=== PATIENT | male | born 1995 | race Caucasian/White ===

== ENCOUNTER 2017-06-14 10:44 | Inpatient (IN) | payer BC ==
[~2017-06-14] VITALS: Ht 182.9 cm; Wt 81.3 kg
[2017-06-14] MEDS ORDERED: PREVACID 15MG15 M1 PO (11:06)
[2017-06-14] MEDS ORDERED: ADVIL200 MG PO (11:06)
[2017-06-14 11:54] LABS: ADJUSTED CALCIUM 8.8 mg/dL (8.4-10.2); BILIRUBIN,TOTAL 0.9 mg/dL (0.0-1.0); CALCIUM 9.6 mg/dL (8.4-10.2); CREATININE, serum 0.81 mg/dL (0.66-1.25); POTASSIUM 4.1 mmol/L (3.4-5.0)
[2017-06-14 12:00] LABS: BASO % 0.2 % (0.0-2.0); EOS # 0.1 (0.0-0.7); EOS % 1.1 % (0-4.0); GRAN # 6.5 (1.4-6.5); GRAN % 66.3 % (42.2-75.2); HEMATOCRIT 40.9 % (42.0-52.0); HEMOGLOBIN 13.7 g/dl (13.5-18.0); LYMPH # 2.6 (1.2-3.4); LYMPH % 26.3 % (20.0-51.0); MEAN CELL VOLUME 90 fl (80.0-100.0); MEAN CORPUSCULAR HEMOGLOBIN 30 pg (27.0-31.0); MEAN CORPUSCULAR HGB CONC 34 g/dl (33.0-37.0); MEAN PLATELET VOLUME 10.9 fl (7.4-10.4); MONO # 0.6 (0.1-0.6); MONO % 5.9 % (1.7-9.3); PLATELET COUNT 236 K/mm3 (130-400); RED BLOOD COUNT 4.56 M/mm3 (4.20-5.60); WHITE BLOOD COUNT 9.8 K/mm3 (4.8-10.8)
[2017-06-14 16:00] VITALS: BP 153/97; PULSE 54; TEMP 98.9
[2017-06-14 20:09] VITALS: BP 137/74; PULSE 57; TEMP 97.4
[2017-06-14 22:02] LABS: MUCOUS Present /lpf; PH 7 (5-8); SQUAMOUS EPITHELIAL None Seen /hpf; URINE APPEARANCE Clear; URINE BACTERIA None Seen /hpf; URINE BILIRUBIN Negative (NEGATIVE); URINE BLOOD Negative (NEGATIVE); URINE COLOR Straw; URINE GLUCOSE Negative (NEGATIVE); URINE KETONE Trace (NEGATIVE); URINE LEUKOCYTE ESTERASE Negative (NEGATIVE); URINE PROTEIN(semi-quant) Negative (NEGATIVE); URINE RBC 0-2 /hpf; URINE UROBILINOGEN Negative (NEGATIVE); URINE WBC 0-2 /hpf
[2017-06-14 22:33] LABS: COLLECTION METHOD CLEAN CATCH
[2017-06-15] VITALS (7 sets, daily range): BP systolic 130–150; BP diastolic 5–84; PULSE 53–91; TEMP 97.7–98.8
[2017-06-15 07:43] LABS: CALCIUM 9.2 mg/dL (8.4-10.2); CREATININE, serum 0.75 mg/dL (0.66-1.25); MAGNESIUM 1.6 mg/dL (1.6-2.3); PHOSPHOROUS 3.9 mg/dL (2.5-4.5); POTASSIUM 4.2 mmol/L (3.4-5.0)
[2017-06-16 04:55] VITALS: BP 133/60; PULSE 64; TEMP 98.2
[2017-06-16 07:39] LABS: BASO % 0.2 % (0.0-2.0); EOS % 0.5 % (0-4.0); GRAN # 5.6 (1.4-6.5); GRAN % 64.2 % (42.2-75.2); HEMOGLOBIN 12.2 g/dl (13.5-18.0); LYMPH # 2.3 (1.2-3.4); LYMPH % 26.2 % (20.0-51.0); MEAN CELL VOLUME 91 fl (80.0-100.0); MEAN CORPUSCULAR HEMOGLOBIN 30 pg (27.0-31.0); MEAN CORPUSCULAR HGB CONC 33 g/dl (33.0-37.0); MEAN PLATELET VOLUME 10.9 fl (7.4-10.4); MONO # 0.8 (0.1-0.6); MONO % 8.7 % (1.7-9.3); PLATELET COUNT 176 K/mm3 (130-400); RED BLOOD COUNT 4.03 M/mm3 (4.20-5.60); WHITE BLOOD COUNT 8.7 K/mm3 (4.8-10.8)
[2017-06-16 07:44] LABS: CALCIUM 8.5 mg/dL (8.4-10.2); CREATININE, serum 0.72 mg/dL (0.66-1.25); MAGNESIUM 1.8 mg/dL (1.6-2.3); PHOSPHOROUS 2.7 mg/dL (2.5-4.5); POTASSIUM 3.6 mmol/L (3.4-5.0)
[2017-06-16 07:45] LABS: HEMATOCRIT 36.8 % (42.0-52.0)
[2017-06-16 08:42] VITALS: BP 125/66; PULSE 79; TEMP 98
[2017-06-16 12:08] VITALS: BP 118/65; PULSE 60; TEMP 98.1
[2017-06-16 16:22] VITALS: BP 128/76; PULSE 74; TEMP 98
[2017-06-16 19:37] VITALS: BP 132/61; PULSE 74; TEMP 98.3
[2017-06-17 00:05] VITALS: BP 137/81; PULSE 64; TEMP 98.5
[2017-06-17 04:12] VITALS: BP 123/60; PULSE 64; TEMP 98.6
[2017-06-17 07:20] LABS: BASO % 0.3 % (0.0-2.0); EOS # 0.1 (0.0-0.7); EOS % 1.7 % (0-4.0); GRAN # 3.1 (1.4-6.5); GRAN % 48.4 % (42.2-75.2); LYMPH # 2.6 (1.2-3.4); LYMPH % 40.1 % (20.0-51.0); MEAN CELL VOLUME 91 fl (80.0-100.0); MEAN CORPUSCULAR HGB CONC 33 g/dl (33.0-37.0); MEAN PLATELET VOLUME 10.9 fl (7.4-10.4); MONO # 0.6 (0.1-0.6); MONO % 9.3 % (1.7-9.3); PLATELET COUNT 180 K/mm3 (130-400); RED BLOOD COUNT 3.82 M/mm3 (4.20-5.60); WHITE BLOOD COUNT 6.4 K/mm3 (4.8-10.8)
[2017-06-17 07:24] LABS: HEMATOCRIT 34.8 % (42.0-52.0); HEMOGLOBIN 11.5 g/dl (13.5-18.0); MEAN CORPUSCULAR HEMOGLOBIN 30 pg (27.0-31.0)
[2017-06-17 07:30] LABS: CALCIUM 8.9 mg/dL (8.4-10.2); CREATININE, serum 0.68 mg/dL (0.66-1.25); MAGNESIUM 1.9 mg/dL (1.6-2.3); PHOSPHOROUS 3.3 mg/dL (2.5-4.5); POTASSIUM 3.7 mmol/L (3.4-5.0)
[2017-06-17 07:34] VITALS: BP 115/63; PULSE 56; TEMP 97.6
[2017-06-17 11:25] VITALS: BP 126/72; PULSE 66; TEMP 98.5
== END 2017-06-17 17:37 | disposition home or self-care (01) | DRG 439 ==
LOC: COL.ER 10:44 → MEDICAL 14:16
PROVIDERS: Emergency Medicine; Internal Medicine
DX: K85.00 Idiopathic acute pancreatitis without necrosis or infection (principal); E87.2 Acidosis; K86.1 Other chronic pancreatitis; R03.0 Elevated blood-pressure reading, without diagnosis of hypertension
CPT/HCPCS: 99222-AI; 99231-AI; 99232-AI; 99238; C9113; J1170; J1644; J2405; J2550; J2765; J3010; J3475; J3480; J7030; Q9967

== ENCOUNTER 2017-08-06 22:23 | Observation (INO) | payer BC ==
[~2017-08-06] VITALS: Ht 182.9 cm; Wt 75.7 kg
[~2017-08-06 22:23] MED LIST: ADVIL200 MG PO; PREVACID 15MG15 M1 PO
[2017-08-06 22:54] LABS: BASO % 0.4 % (0.0-2.0); EOS # 0.4 (0.0-0.7); EOS % 3.7 % (0-4.0); GRAN # 5.1 (1.4-6.5); GRAN % 51.8 % (42.2-75.2); HEMOGLOBIN 13.7 g/dl (13.5-18.0); LYMPH # 3.5 (1.2-3.4); MEAN CELL VOLUME 91 fl (80.0-100.0); MEAN CORPUSCULAR HEMOGLOBIN 30 pg (27.0-31.0); MEAN CORPUSCULAR HGB CONC 33 g/dl (33.0-37.0); MEAN PLATELET VOLUME 10.8 fl (7.4-10.4); MONO # 0.9 (0.1-0.6); MONO % 8.9 % (1.7-9.3); PLATELET COUNT 216 K/mm3 (130-400); RED BLOOD COUNT 4.61 M/mm3 (4.20-5.60); WHITE BLOOD COUNT 9.9 K/mm3 (4.8-10.8)
[2017-08-06 23:04] LABS: ALANINE AMINOTRANSFERASE 39 U/L (21-72); ALBUMIN 4.9 gm/dL (3.5-5.0); ALKALINE PHOSPHATASE 68 U/L (50-136); AMYLASE 238 U/L (30-110); ANION GAP 13 mmol/L (7-16); BILIRUBIN,TOTAL 0.9 mg/dL (0.0-1.0); BLOOD UREA NITROGEN 12 mg/dL (9-20); CALCIUM 9.7 mg/dL (8.4-10.2); CARBON DIOXIDE 23 mmol/L (22-30); CHLORIDE 104 mmol/L (98-107); CREATININE, serum 0.98 mg/dL (0.66-1.25); GLUCOSE 107 mg/dL (74-106); POTASSIUM 3.8 mmol/L (3.4-5.0); SODIUM 141 mmol/L (137-145)
[2017-08-06 23:06] LABS: ALCOHOL(ethanol),MEDICAL < 10 mg/dL
[2017-08-06 23:11] LABS: LIPASE 2110 U/L (23-300)
[2017-08-07] VITALS (7 sets, daily range): BP systolic 117–134; BP diastolic 54–88; PULSE 55–98; TEMP 97.4–98.7
[2017-08-07] MEDS ORDERED: LEXAPRO 10MG10 MG PO (01:10)
[2017-08-07] MEDS ORDERED: ATARAX 25MG25 MG/TAB PO (01:12)
[2017-08-07] MEDS ORDERED: DESYREL 100MG100 MG PO (01:12)
[2017-08-07 06:51] LABS: BASO % 0.3 % (0.0-2.0); EOS # 0.1 (0.0-0.7); EOS % 1.3 % (0-4.0); GRAN # 6.8 (1.4-6.5); GRAN % 73.6 % (42.2-75.2); HEMATOCRIT 39.2 % (42.0-52.0); HEMOGLOBIN 12.7 g/dl (13.5-18.0); LYMPH # 1.8 (1.2-3.4); LYMPH % 19.4 % (20.0-51.0); MEAN CELL VOLUME 92 fl (80.0-100.0); MEAN CORPUSCULAR HEMOGLOBIN 30 pg (27.0-31.0); MEAN CORPUSCULAR HGB CONC 32 g/dl (33.0-37.0); MEAN PLATELET VOLUME 11.3 fl (7.4-10.4); MONO # 0.5 (0.1-0.6); MONO % 5.1 % (1.7-9.3); PLATELET COUNT 204 K/mm3 (130-400); RED BLOOD COUNT 4.25 M/mm3 (4.20-5.60); WHITE BLOOD COUNT 9.3 K/mm3 (4.8-10.8)
[2017-08-07 07:03] LABS: CALCIUM 9.1 mg/dL (8.4-10.2); CREATININE, serum 0.81 mg/dL (0.66-1.25)
[2017-08-08 03:43] VITALS: BP 114/63; PULSE 59; TEMP 97.6
[2017-08-08 07:11] LABS: BASO % 0.3 % (0.0-2.0); EOS # 0.2 (0.0-0.7); EOS % 3.3 % (0-4.0); GRAN # 3.1 (1.4-6.5); GRAN % 49.2 % (42.2-75.2); LYMPH # 2.5 (1.2-3.4); LYMPH % 39.4 % (20.0-51.0); MEAN CELL VOLUME 92 fl (80.0-100.0); MEAN CORPUSCULAR HGB CONC 32 g/dl (33.0-37.0); MONO # 0.5 (0.1-0.6); MONO % 7.6 % (1.7-9.3); PLATELET COUNT 169 K/mm3 (130-400); RED BLOOD COUNT 3.84 M/mm3 (4.20-5.60); WHITE BLOOD COUNT 6.3 K/mm3 (4.8-10.8)
[2017-08-08 07:12] LABS: HEMATOCRIT 35.2 % (42.0-52.0); HEMOGLOBIN 11.4 g/dl (13.5-18.0); MEAN CORPUSCULAR HEMOGLOBIN 30 pg (27.0-31.0)
[2017-08-08 07:14] LABS: CALCIUM 8.7 mg/dL (8.4-10.2); CHOLESTEROL RISK RATIO 2.2; CREATININE, serum 0.74 mg/dL (0.66-1.25); POTASSIUM 3.7 mmol/L (3.4-5.0)
[2017-08-08 08:30] VITALS: BP 109/69; PULSE 51; TEMP 98.3
[2017-08-08 11:51] VITALS: BP 118/71; PULSE 54; TEMP 97.4
[2017-08-08] MEDS ORDERED: NORCO 325 MG-101 TAB PO (15:36)
[2017-08-08] MEDS ORDERED: ZOFRAN ODT4 MG PO (15:36)
== END 2017-08-08 16:53 | disposition home or self-care (01) ==
LOC: COL.ER 22:23 → MEDICAL 23:31
PROVIDERS: Nurse Practitioner; Physician Assistant
DX: K86.1 Other chronic pancreatitis (principal); F43.10 Post-traumatic stress disorder, unspecified; Z90.49 Acquired absence of other specified parts of digestive tract
CPT/HCPCS: 99223-AI; G0378; J1170; J2405; J2550; J7030

== ENCOUNTER 2017-12-23 06:16 | Observation (INO) | payer BC ==
[~2017-12-23] VITALS: Ht 182.9 cm; Wt 78.6 kg
[~2017-12-23 06:16] MED LIST changes: +ATARAX 25MG25 MG/TAB PO; +DESYREL 100MG100 MG PO; +LEXAPRO 10MG10 MG PO; +NORCO 325 MG-101 TAB PO; +ULTRAM 50MG TAB50 MG PO; +ZOFRAN 4MG T4 MG/TAB PO; +ZOFRAN ODT4 MG PO
[2017-12-23 06:40] LABS: BASO % 0.4 % (0.0-2.0); EOS # 0.2 (0.0-0.7); EOS % 2.8 % (0-4.0); GRAN # 2.5 (1.4-6.5); GRAN % 31.3 % (42.2-75.2); HEMATOCRIT 39.5 % (42.0-52.0); LYMPH # 4.7 (1.2-3.4); LYMPH % 58.9 % (20.0-51.0); MEAN CELL VOLUME 90 fl (80.0-100.0); MEAN CORPUSCULAR HEMOGLOBIN 30 pg (27.0-31.0); MEAN CORPUSCULAR HGB CONC 33 g/dl (33.0-37.0); MEAN PLATELET VOLUME 10.7 fl (7.4-10.4); MONO # 0.5 (0.1-0.6); MONO % 6.5 % (1.7-9.3); PLATELET COUNT 241 K/mm3 (130-400); RED BLOOD COUNT 4.38 M/mm3 (4.20-5.60); REDCELL DISTRIBUTION WIDTH-CV 13.1 % (11.5-14.5)
[2017-12-23 06:52] LABS: ALANINE AMINOTRANSFERASE 24 U/L (21-72); ALBUMIN 4.7 gm/dL (3.5-5.0); ALKALINE PHOSPHATASE 64 U/L (50-136); ANION GAP 15 mmol/L (7-16); AST,SGOT 16 U/L (15-37); BILIRUBIN,TOTAL 0.6 mg/dL (0.0-1.0); BLOOD UREA NITROGEN 18 mg/dL (9-20); CALCIUM 9.8 mg/dL (8.4-10.2); CARBON DIOXIDE 25 mmol/L (22-30); CHLORIDE 105 mmol/L (98-107); CREATININE, serum 0.97 mg/dL (0.66-1.25); GLUCOSE 101 mg/dL (74-106); LIPASE 1562 U/L (23-300); POTASSIUM 3.9 mmol/L (3.4-5.0); SODIUM 145 mmol/L (137-145); TOTAL PROTEIN 8.5 gm/dL (6.4-8.2)
[2017-12-23 06:54] LABS: C-REACTIVE PROTEIN < 0.5 mg/dL (0.0-0.9)
[2017-12-23 10:59] VITALS: BP 130/79; PULSE 45; TEMP 97.2
[2017-12-23 15:42] VITALS: BP 136/92; PULSE 76; TEMP 98
[2017-12-23 19:53] VITALS: BP 125/68; PULSE 57; TEMP 98.7
[2017-12-23 23:38] VITALS: BP 117/60; PULSE 55; TEMP 98.6
[2017-12-24 02:29] VITALS: BP 112/56; PULSE 53; TEMP 98.3
[2017-12-24 06:32] LABS: ALBUMIN 3.3 gm/dL (3.5-5.0); CALCIUM 8.6 mg/dL (8.4-10.2); CREATININE, serum 0.69 mg/dL (0.66-1.25); MAGNESIUM 1.7 mg/dL (1.6-2.3); POTASSIUM 3.8 mmol/L (3.4-5.0); TOTAL PROTEIN 6.1 gm/dL (6.4-8.2)
[2017-12-24 07:20] VITALS: BP 100/59; PULSE 94; TEMP 97.5
[2017-12-24] MEDS ORDERED: PERCOCET 325 MG1 TA2 PO (09:54)
== END 2017-12-24 14:30 | disposition home or self-care (01) ==
LOC: COL.ER 06:16 → MEDICAL 08:40
PROVIDERS: Emergency Medicine; Internal Medicine
DX: K86.1 Other chronic pancreatitis (principal); F43.10 Post-traumatic stress disorder, unspecified
CPT/HCPCS: 99238; G0378; J1170; J2405; J2550; J7030

== ENCOUNTER 2017-12-24 20:14 | Inpatient (IN) | payer BC ==
[~2017-12-24] VITALS: Ht 182.9 cm; Wt 79.9 kg
[~2017-12-24 20:14] MED LIST changes: +PERCOCET 325 MG1 TA2 PO
[2017-12-24 20:48] LABS: BASO % 0.2 % (0.0-2.0); EOS # 0.1 (0.0-0.7); EOS % 0.9 % (0-4.0); GRAN % 76.6 % (42.2-75.2); HEMATOCRIT 37.3 % (42.0-52.0); HEMOGLOBIN 12.7 g/dl (13.5-18.0); LYMPH # 1.9 (1.2-3.4); LYMPH % 16.3 % (20.0-51.0); MEAN CELL VOLUME 88 fl (80.0-100.0); MEAN CORPUSCULAR HEMOGLOBIN 30 pg (27.0-31.0); MEAN CORPUSCULAR HGB CONC 34 g/dl (33.0-37.0); MEAN PLATELET VOLUME 10.5 fl (7.4-10.4); MONO # 0.7 (0.1-0.6); MONO % 5.7 % (1.7-9.3); PLATELET COUNT 209 K/mm3 (130-400); RED BLOOD COUNT 4.24 M/mm3 (4.20-5.60); REDCELL DISTRIBUTION WIDTH-CV 13.2 % (11.5-14.5)
[2017-12-24 21:02] LABS: ALBUMIN 4.2 gm/dL (3.5-5.0); BILIRUBIN,TOTAL 1.3 mg/dL (0.0-1.0); C-REACTIVE PROTEIN 1.3 mg/dL (0.0-0.9); CALCIUM 9.4 mg/dL (8.4-10.2); CREATININE, serum 0.72 mg/dL (0.66-1.25); TOTAL PROTEIN 7.5 gm/dL (6.4-8.2)
[2017-12-24 21:16] LABS: POTASSIUM 3.8 mmol/L (3.4-5.0)
[2017-12-24 23:01] VITALS: BP 147/77; PULSE 62; TEMP 98.1
[2017-12-25 04:28] VITALS: BP 105/51; PULSE 51; TEMP 98.5
[2017-12-25 06:22] LABS: BASO % 0.1 % (0.0-2.0); EOS # 0.1 (0.0-0.7); EOS % 1.4 % (0-4.0); GRAN # 4.9 (1.4-6.5); GRAN % 66.6 % (42.2-75.2); HEMOGLOBIN 11.2 g/dl (13.5-18.0); LYMPH # 1.9 (1.2-3.4); LYMPH % 25.6 % (20.0-51.0); MEAN CELL VOLUME 91 fl (80.0-100.0); MEAN CORPUSCULAR HEMOGLOBIN 30 pg (27.0-31.0); MEAN CORPUSCULAR HGB CONC 33 g/dl (33.0-37.0); MEAN PLATELET VOLUME 11.1 fl (7.4-10.4); MONO # 0.4 (0.1-0.6); PLATELET COUNT 200 K/mm3 (130-400); RED BLOOD COUNT 3.74 M/mm3 (4.20-5.60)
[2017-12-25 06:24] LABS: HEMATOCRIT 34.2 % (42.0-52.0)
[2017-12-25 06:40] LABS: CALCIUM 8.5 mg/dL (8.4-10.2); CREATININE, serum 0.7 mg/dL (0.66-1.25); POTASSIUM 3.7 mmol/L (3.4-5.0)
[2017-12-25 08:22] VITALS: BP 98/54; PULSE 52; TEMP 98.4
[2017-12-25 11:46] VITALS: BP 116/62; PULSE 64; TEMP 98.4
[2017-12-25 15:51] VITALS: BP 123/68; PULSE 68; TEMP 98.3
[2017-12-25 19:29] VITALS: BP 122/67; PULSE 55; TEMP 98.3
[2017-12-26 03:28] VITALS: BP 118/63; PULSE 58; TEMP 97.7
[2017-12-26 06:18] LABS: BASO % 0.3 % (0.0-2.0); EOS # 0.2 (0.0-0.7); EOS % 2.7 % (0-4.0); GRAN # 3.5 (1.4-6.5); GRAN % 52.3 % (42.2-75.2); HEMOGLOBIN 10.1 g/dl (13.5-18.0); LYMPH # 2.5 (1.2-3.4); LYMPH % 37.1 % (20.0-51.0); MEAN CELL VOLUME 90 fl (80.0-100.0); MEAN CORPUSCULAR HEMOGLOBIN 30 pg (27.0-31.0); MEAN CORPUSCULAR HGB CONC 33 g/dl (33.0-37.0); MEAN PLATELET VOLUME 11.2 fl (7.4-10.4); MONO # 0.5 (0.1-0.6); MONO % 7.4 % (1.7-9.3); PLATELET COUNT 159 K/mm3 (130-400); RED BLOOD COUNT 3.41 M/mm3 (4.20-5.60); REDCELL DISTRIBUTION WIDTH-CV 12.7 % (11.5-14.5)
[2017-12-26 06:20] LABS: HEMATOCRIT 30.7 % (42.0-52.0)
[2017-12-26 06:31] LABS: CALCIUM 8.3 mg/dL (8.4-10.2); CREATININE, serum 0.67 mg/dL (0.66-1.25); POTASSIUM 3.8 mmol/L (3.4-5.0)
[2017-12-26 07:51] VITALS: BP 115/56; PULSE 63; TEMP 97.7
[2017-12-26 11:37] VITALS: BP 122/70; PULSE 65; TEMP 98.8
[2017-12-26 15:31] VITALS: BP 123/73; PULSE 51; TEMP 98.5
== END 2017-12-26 16:35 | disposition home or self-care (01) | DRG 440 ==
LOC: COL.ER 20:14 → SURG 22:03
PROVIDERS: Family Medicine; Nurse Practitioner Family; Physician Assistant
DX: K85.90 Acute pancreatitis without necrosis or infection, unspecified (principal); K86.1 Other chronic pancreatitis; E16.2 Hypoglycemia, unspecified; F43.10 Post-traumatic stress disorder, unspecified
CPT/HCPCS: 99223-AI; 99238; C9113; J1170; J1650; J2405; J2550; J7030

== ENCOUNTER 2018-05-01 12:11 | Emergency (ER) | payer BC ==
[~2018-05-01] VITALS: Ht 182.9 cm; Wt 77.3 kg
[~2018-05-01 12:11] MED LIST changes: +NORCO 325 MG-51 TAB PO
[2018-05-01 12:18] VITALS: BP 133/82; TEMP 98.7
[2018-05-01 12:54] LABS: BASO % 0.3 % (0.0-2.0); EOS # 0.1 (0.0-0.7); EOS % 1.9 % (0-4.0); GRAN # 3.6 (1.4-6.5); HEMOGLOBIN 12.4 g/dl (13.5-18.0); LYMPH # 1.6 (1.2-3.4); LYMPH % 28.6 % (20.0-51.0); MEAN CELL VOLUME 89 fl (80.0-100.0); MEAN CORPUSCULAR HEMOGLOBIN 30 pg (27.0-31.0); MEAN CORPUSCULAR HGB CONC 34 g/dl (33.0-37.0); MEAN PLATELET VOLUME 10.6 fl (7.4-10.4); MONO # 0.4 (0.1-0.6); PLATELET COUNT 226 K/mm3 (130-400); RED BLOOD COUNT 4.17 M/mm3 (4.20-5.60); REDCELL DISTRIBUTION WIDTH-CV 13.2 % (11.5-14.5)
[2018-05-01 13:10] LABS: ALBUMIN 4.5 gm/dL (3.5-5.0); BILIRUBIN,TOTAL 0.8 mg/dL (0.0-1.0); CALCIUM 9.2 mg/dL (8.4-10.2); CREATININE, serum 0.8 mg/dL (0.66-1.25); POTASSIUM 4.3 mmol/L (3.4-5.0); TOTAL PROTEIN 7.4 gm/dL (6.4-8.2)
[2018-05-01] MEDS ORDERED: PHENERGAN 25 TA25 MG PO (15:09)
[2018-05-01] MEDS ORDERED: NORCO 325 MG-51 TAB PO (15:09)
[2018-05-01 16:28] VITALS: PULSE 58
== END 2018-05-01 16:28 | disposition home or self-care (01) ==
LOC: COL.ER 12:11
PROVIDERS: Emergency Medicine
DX: K85.90 Acute pancreatitis without necrosis or infection, unspecified (principal)
CPT/HCPCS: J1170; J1630; J2550; J7030; J7040

== ENCOUNTER 2018-05-02 05:32 | Inpatient (IN) | payer BC ==
[~2018-05-02] VITALS: Ht 182.9 cm; Wt 83.5 kg
[~2018-05-02 05:32] MED LIST changes: +PHENERGAN 25 TA25 MG PO
[2018-05-02 06:04] LABS: BASO % 0.3 % (0.0-2.0); EOS # 0.1 (0.0-0.7); EOS % 1.7 % (0-4.0); GRAN # 5.1 (1.4-6.5); GRAN % 71.7 % (42.2-75.2); LYMPH # 1.4 (1.2-3.4); LYMPH % 20.2 % (20.0-51.0); MEAN CELL VOLUME 90 fl (80.0-100.0); MEAN CORPUSCULAR HEMOGLOBIN 30 pg (27.0-31.0); MEAN CORPUSCULAR HGB CONC 33 g/dl (33.0-37.0); MEAN PLATELET VOLUME 10.1 fl (7.4-10.4); MONO # 0.4 (0.1-0.6); PLATELET COUNT 165 K/mm3 (130-400); RED BLOOD COUNT 3.71 M/mm3 (4.20-5.60); REDCELL DISTRIBUTION WIDTH-CV 13.1 % (11.5-14.5)
[2018-05-02 06:10] LABS: HEMATOCRIT 33.5 % (42.0-52.0)
[2018-05-02 06:18] LABS: ALBUMIN 3.6 gm/dL (3.5-5.0); BILIRUBIN,TOTAL 0.9 mg/dL (0.0-1.0); CALCIUM 8.2 mg/dL (8.4-10.2); CREATININE, serum 0.8 mg/dL (0.66-1.25); POTASSIUM 3.7 mmol/L (3.4-5.0); TOTAL PROTEIN 6.3 gm/dL (6.4-8.2)
[2018-05-02 12:28] VITALS: BP 109/57; PULSE 55; TEMP 97.9
[2018-05-02 16:44] VITALS: BP 114/65; PULSE 70; TEMP 98.2
[2018-05-02 19:56] VITALS: BP 121/65; PULSE 66; TEMP 98.1
[2018-05-02 23:44] VITALS: BP 158/94; PULSE 99; TEMP 98.2
[2018-05-03 03:59] VITALS: BP 113/61; PULSE 70; TEMP 98.5
[2018-05-03 07:38] VITALS: BP 118/68; PULSE 61; TEMP 98.2
[2018-05-03 11:06] VITALS: BP 105/59; PULSE 58; TEMP 97.9
[2018-05-03 16:29] VITALS: BP 122/67; PULSE 64
[2018-05-03 19:40] VITALS: BP 120/65; PULSE 59; TEMP 98.3
[2018-05-04 00:28] LABS: COLLECTION METHOD CLEAN CATCH
[2018-05-04 00:36] LABS: MUCOUS Present /lpf; PH 5 (5-8); SQUAMOUS EPITHELIAL None Seen /hpf; URINE APPEARANCE Clear; URINE BACTERIA None Seen /hpf; URINE BILIRUBIN Negative (NEGATIVE); URINE BLOOD Negative (NEGATIVE); URINE COLOR Straw; URINE GLUCOSE Negative (NEGATIVE); URINE KETONE 2+ (NEGATIVE); URINE LEUKOCYTE ESTERASE Negative (NEGATIVE); URINE NITRATE Negative (NEGATIVE); URINE PROTEIN(semi-quant) Negative (NEGATIVE); URINE RBC 0-2 /hpf; URINE UROBILINOGEN Negative (NEGATIVE)
[2018-05-04 04:35] VITALS: BP 148/80; PULSE 72; TEMP 98.2
[2018-05-04 06:02] LABS: BASO % 0.1 % (0.0-2.0); EOS # 0.1 (0.0-0.7); EOS % 0.6 % (0-4.0); GRAN # 6.6 (1.4-6.5); GRAN % 77.4 % (42.2-75.2); HEMOGLOBIN 11.7 g/dl (13.5-18.0); LYMPH # 1.2 (1.2-3.4); LYMPH % 14.5 % (20.0-51.0); MEAN CELL VOLUME 89 fl (80.0-100.0); MEAN CORPUSCULAR HEMOGLOBIN 30 pg (27.0-31.0); MEAN CORPUSCULAR HGB CONC 34 g/dl (33.0-37.0); MEAN PLATELET VOLUME 10.5 fl (7.4-10.4); MONO # 0.6 (0.1-0.6); MONO % 6.6 % (1.7-9.3); PLATELET COUNT 215 K/mm3 (130-400); RED BLOOD COUNT 3.88 M/mm3 (4.20-5.60); REDCELL DISTRIBUTION WIDTH-CV 12.7 % (11.5-14.5)
[2018-05-04 06:03] LABS: HEMATOCRIT 34.7 % (42.0-52.0)
[2018-05-04 06:11] LABS: CALCIUM 8.6 mg/dL (8.4-10.2); CREATININE, serum 0.67 mg/dL (0.66-1.25); POTASSIUM 3.7 mmol/L (3.4-5.0)
[2018-05-04 07:03] VITALS: BP 115/58; PULSE 74; TEMP 98.6
[2018-05-04 11:27] VITALS: BP 112/61; PULSE 60; TEMP 80; TEMP 98.2
[2018-05-04 15:18] VITALS: BP 127/82; PULSE 101; TEMP 98.7
[2018-05-04 21:28] VITALS: BP 124/68; PULSE 66; TEMP 99
[2018-05-05 01:33] VITALS: BP 123/73; PULSE 57; TEMP 98.5
[2018-05-05 04:54] VITALS: BP 105/59; PULSE 58; TEMP 97.9
[2018-05-05 06:58] LABS: CALCIUM 8.4 mg/dL (8.4-10.2); CREATININE, serum 0.69 mg/dL (0.66-1.25); MAGNESIUM 1.9 mg/dL (1.6-2.3); POTASSIUM 3.9 mmol/L (3.4-5.0)
[2018-05-05 07:28] VITALS: BP 99/47; PULSE 56; TEMP 98
[2018-05-05 11:32] VITALS: BP 104/59; PULSE 67; TEMP 98.9
[2018-05-05 15:14] VITALS: BP 117/51; PULSE 73; TEMP 98.1
[2018-05-05 20:27] VITALS: BP 122/61; PULSE 58; TEMP 98.5
[2018-05-06 00:05] VITALS: BP 123/73; PULSE 70; TEMP 98.4
[2018-05-06 06:41] LABS: HEMOGLOBIN 11.4 g/dl (13.5-18.0); MEAN CELL VOLUME 86 fl (80.0-100.0); MEAN CORPUSCULAR HEMOGLOBIN 30 pg (27.0-31.0); MEAN CORPUSCULAR HGB CONC 35 g/dl (33.0-37.0); PLATELET COUNT 210 K/mm3 (130-400); RED BLOOD COUNT 3.85 M/mm3 (4.20-5.60); REDCELL DISTRIBUTION WIDTH-CV 12.8 % (11.5-14.5)
[2018-05-06 06:46] LABS: HEMATOCRIT 32.9 % (42.0-52.0)
[2018-05-06 06:52] LABS: CALCIUM 8.8 mg/dL (8.4-10.2); CREATININE, serum 0.7 mg/dL (0.66-1.25); POTASSIUM 3.5 mmol/L (3.4-5.0)
[2018-05-06 08:10] VITALS: BP 97/57; PULSE 61; TEMP 98.4
[2018-05-06 08:43] LABS: BAND 1 % (0-10); EOSINOPHIL 3 % (0-4); NEUTROPHILS 40 % (42.0-75.2)
[2018-05-06 08:44] LABS: LYMPHOCYTE 49 % (20.0-51.0); PLATELET ESTIMATE NORMAL (NORMAL)
[2018-05-06 11:38] VITALS: BP 133/80; PULSE 72; TEMP 98.9
[2018-05-06] MEDS ORDERED: CIPRO 500MG TA500 MG PO (12:38)
[2018-05-06] MEDS ORDERED: FLAGYL500 MG PO (12:38)
== END 2018-05-06 14:12 | disposition home or self-care (01) | DRG 440 ==
LOC: COL.ER 05:32 → MEDICAL 07:30
PROVIDERS: Emergency Medicine; Internal Medicine; Physician Assistant
DX: K85.00 Idiopathic acute pancreatitis without necrosis or infection (principal); K86.1 Other chronic pancreatitis; K21.9 Gastro-esophageal reflux disease without esophagitis; F43.10 Post-traumatic stress disorder, unspecified; K52.9 Noninfective gastroenteritis and colitis, unspecified; E16.2 Hypoglycemia, unspecified
CPT/HCPCS: 99222-AI; 99232-AI; 99233-AI; 99239; J0744; J1170; J1650; J2405; J2550; J7030; J7040; Q9967

== ENCOUNTER 2018-05-11 16:47 | Inpatient (IN) | payer BC ==
[~2018-05-11] VITALS: Ht 182.9 cm; Wt 78.1 kg
[~2018-05-11 16:47] MED LIST changes: +CIPRO 500MG TA500 MG PO; +FLAGYL500 MG PO
[2018-05-11 17:13] LABS: BASO % 0.3 % (0.0-2.0); EOS # 0.1 (0.0-0.7); EOS % 1.2 % (0-4.0); GRAN # 5.5 (1.4-6.5); GRAN % 61.3 % (42.2-75.2); LYMPH # 2.9 (1.2-3.4); LYMPH % 32.1 % (20.0-51.0); MEAN CELL VOLUME 89 fl (80.0-100.0); MEAN CORPUSCULAR HEMOGLOBIN 29 pg (27.0-31.0); MEAN CORPUSCULAR HGB CONC 33 g/dl (33.0-37.0); MEAN PLATELET VOLUME 10.6 fl (7.4-10.4); MONO # 0.5 (0.1-0.6); PLATELET COUNT 256 K/mm3 (130-400); RED BLOOD COUNT 4.09 M/mm3 (4.20-5.60)
[2018-05-11 17:14] LABS: HEMATOCRIT 36.3 % (42.0-52.0)
[2018-05-11 17:24] LABS: ALANINE AMINOTRANSFERASE 39 U/L (21-72); ALBUMIN 4.3 gm/dL (3.5-5.0); ALKALINE PHOSPHATASE 71 U/L (50-136); AMYLASE 996 U/L (30-110); ANION GAP 15 mmol/L (7-16); AST,SGOT 27 U/L (15-37); BILIRUBIN,TOTAL 1.3 mg/dL (0.0-1.0); BLOOD UREA NITROGEN 9 mg/dL (9-20); CARBON DIOXIDE 21 mmol/L (22-30); CHLORIDE 103 mmol/L (98-107); CREATININE, serum 0.69 mg/dL (0.66-1.25); GLUCOSE 86 mg/dL (74-106); POTASSIUM 3.3 mmol/L (3.4-5.0); SODIUM 139 mmol/L (137-145); TOTAL PROTEIN 7.4 gm/dL (6.4-8.2)
[2018-05-11 17:27] LABS: C-REACTIVE PROTEIN < 0.5 mg/dL (0.0-0.9)
[2018-05-11 17:50] LABS: LIPASE 10508 U/L (23-300)
[2018-05-11 18:57] LABS: INR 1.2 (0.8-3.0); PROTHROMBIN TIME 13.5 SECONDS (9.7-12.8)
[2018-05-11 20:06] VITALS: BP 123/73; PULSE 110; TEMP 98.1
[2018-05-12] VITALS (7 sets, daily range): BP systolic 108–122; BP diastolic 51–68; PULSE 47–72; TEMP 97.6–98.4
[2018-05-12 06:19] LABS: BASO % 0.2 % (0.0-2.0); EOS # 0.1 (0.0-0.7); GRAN # 2.6 (1.4-6.5); GRAN % 43.2 % (42.2-75.2); HEMOGLOBIN 10.3 g/dl (13.5-18.0); LYMPH # 2.8 (1.2-3.4); LYMPH % 47.4 % (20.0-51.0); MEAN CELL VOLUME 92 fl (80.0-100.0); MEAN CORPUSCULAR HEMOGLOBIN 30 pg (27.0-31.0); MEAN CORPUSCULAR HGB CONC 33 g/dl (33.0-37.0); MEAN PLATELET VOLUME 11.2 fl (7.4-10.4); MONO # 0.4 (0.1-0.6); MONO % 6.9 % (1.7-9.3); PLATELET COUNT 204 K/mm3 (130-400); RED BLOOD COUNT 3.43 M/mm3 (4.20-5.60); REDCELL DISTRIBUTION WIDTH-CV 13.2 % (11.5-14.5)
[2018-05-12 06:20] LABS: HEMATOCRIT 31.4 % (42.0-52.0)
[2018-05-12 06:29] LABS: ALBUMIN 3.4 gm/dL (3.5-5.0); BILIRUBIN,TOTAL 0.9 mg/dL (0.0-1.0); CALCIUM 8.4 mg/dL (8.4-10.2); CREATININE, serum 0.64 mg/dL (0.66-1.25); MAGNESIUM 1.9 mg/dL (1.6-2.3); POTASSIUM 4.1 mmol/L (3.4-5.0)
[2018-05-12 08:37] LABS: COLLECTION METHOD CLEAN CATCH
[2018-05-12 08:50] LABS: MUCOUS Present /lpf; PH 6 (5-8); SQUAMOUS EPITHELIAL None Seen /hpf; URINE APPEARANCE Clear; URINE BACTERIA None Seen /hpf; URINE BILIRUBIN Negative (NEGATIVE); URINE BLOOD Negative (NEGATIVE); URINE COLOR Yellow; URINE GLUCOSE Negative (NEGATIVE); URINE KETONE 1+ (NEGATIVE); URINE LEUKOCYTE ESTERASE Negative (NEGATIVE); URINE NITRATE Negative (NEGATIVE); URINE PROTEIN(semi-quant) Negative (NEGATIVE); URINE RBC 0-2 /hpf; URINE UROBILINOGEN Negative (NEGATIVE)
[2018-05-13 05:25] VITALS: BP 115/64; PULSE 59; TEMP 99
[2018-05-13 07:50] VITALS: BP 109/67; PULSE 74; TEMP 98.2
[2018-05-13 08:18] LABS: BASO % 0.3 % (0.0-2.0); EOS # 0.1 (0.0-0.7); EOS % 1.5 % (0-4.0); GRAN # 3.9 (1.4-6.5); GRAN % 59.7 % (42.2-75.2); HEMOGLOBIN 11.7 g/dl (13.5-18.0); LYMPH # 2.1 (1.2-3.4); LYMPH % 31.8 % (20.0-51.0); MEAN CELL VOLUME 91 fl (80.0-100.0); MEAN CORPUSCULAR HEMOGLOBIN 30 pg (27.0-31.0); MEAN CORPUSCULAR HGB CONC 33 g/dl (33.0-37.0); MEAN PLATELET VOLUME 10.9 fl (7.4-10.4); MONO # 0.4 (0.1-0.6); MONO % 6.2 % (1.7-9.3); PLATELET COUNT 256 K/mm3 (130-400); RED BLOOD COUNT 3.95 M/mm3 (4.20-5.60); REDCELL DISTRIBUTION WIDTH-CV 12.8 % (11.5-14.5)
[2018-05-13 08:48] LABS: ALBUMIN 4.2 gm/dL (3.5-5.0); CALCIUM 8.8 mg/dL (8.4-10.2); CREATININE, serum 0.7 mg/dL (0.66-1.25); MAGNESIUM 1.9 mg/dL (1.6-2.3); PHOSPHOROUS 3.3 mg/dL (2.5-4.5); POTASSIUM 4.4 mmol/L (3.4-5.0)
[2018-05-13 12:14] VITALS: BP 113/57; PULSE 66; TEMP 98
[2018-05-13 16:33] VITALS: BP 116/62; PULSE 60; TEMP 98
[2018-05-13 19:42] VITALS: BP 115/56; PULSE 63; TEMP 97.9
[2018-05-14] VITALS (7 sets, daily range): BP systolic 90–128; BP diastolic 32–74; PULSE 56–73; TEMP 97.8–98.5
[2018-05-14 06:24] LABS: BASO % 0.3 % (0.0-2.0); EOS # 0.1 (0.0-0.7); EOS % 1.6 % (0-4.0); GRAN # 3.6 (1.4-6.5); GRAN % 58.1 % (42.2-75.2); HEMATOCRIT 35.6 % (42.0-52.0); HEMOGLOBIN 11.6 g/dl (13.5-18.0); LYMPH % 33.1 % (20.0-51.0); MEAN CELL VOLUME 91 fl (80.0-100.0); MEAN CORPUSCULAR HEMOGLOBIN 30 pg (27.0-31.0); MEAN CORPUSCULAR HGB CONC 33 g/dl (33.0-37.0); MEAN PLATELET VOLUME 11.2 fl (7.4-10.4); MONO # 0.4 (0.1-0.6); MONO % 6.7 % (1.7-9.3); PLATELET COUNT 259 K/mm3 (130-400); REDCELL DISTRIBUTION WIDTH-CV 12.9 % (11.5-14.5)
[2018-05-14 06:40] LABS: CALCIUM 8.8 mg/dL (8.4-10.2); CREATININE, serum 0.71 mg/dL (0.66-1.25); POTASSIUM 4.2 mmol/L (3.4-5.0)
[2018-05-15 00:47] VITALS: BP 124/74; PULSE 75; TEMP 98.1
[2018-05-15 04:56] VITALS: BP 106/60; PULSE 75; TEMP 98.2
[2018-05-15 08:38] VITALS: BP 99/53; PULSE 69; TEMP 97.7
[2018-05-15 11:29] VITALS: BP 119/70; PULSE 72; TEMP 98.2
[2018-05-15 15:32] VITALS: BP 110/65; PULSE 84; TEMP 99.1
[2018-05-15 20:04] VITALS: BP 115/60; PULSE 82; TEMP 98
[2018-05-16 00:40] VITALS: BP 125/73; PULSE 83; TEMP 99
[2018-05-16 03:45] VITALS: BP 115/50; PULSE 92; TEMP 98.8
[2018-05-16 06:18] LABS: BASO % 0.3 % (0.0-2.0); EOS % 0.5 % (0-4.0); GRAN # 4.6 (1.4-6.5); GRAN % 61.1 % (42.2-75.2); HEMOGLOBIN 10.8 g/dl (13.5-18.0); LYMPH # 1.9 (1.2-3.4); LYMPH % 25.3 % (20.0-51.0); MEAN CELL VOLUME 88 fl (80.0-100.0); MEAN CORPUSCULAR HEMOGLOBIN 30 pg (27.0-31.0); MEAN CORPUSCULAR HGB CONC 34 g/dl (33.0-37.0); MEAN PLATELET VOLUME 11.3 fl (7.4-10.4); MONO % 12.7 % (1.7-9.3); PLATELET COUNT 192 K/mm3 (130-400); RED BLOOD COUNT 3.64 M/mm3 (4.20-5.60); REDCELL DISTRIBUTION WIDTH-CV 13.1 % (11.5-14.5)
[2018-05-16 06:33] LABS: CALCIUM 8.5 mg/dL (8.4-10.2); CREATININE, serum 0.57 mg/dL (0.66-1.25); POTASSIUM 3.1 mmol/L (3.4-5.0)
[2018-05-16 08:39] VITALS: BP 122/72; PULSE 76; TEMP 98.8
[2018-05-16 12:24] VITALS: BP 107/59; PULSE 77; TEMP 98.1
[2018-05-16 14:30] VITALS: BP 119/72; PULSE 76; TEMP 98.1
[2018-05-16 19:56] VITALS: BP 118/65; PULSE 97; TEMP 98
[2018-05-17 00:09] VITALS: BP 117/68; PULSE 91; TEMP 98.2
[2018-05-17 03:53] VITALS: BP 91/54; PULSE 71; TEMP 98.3
[2018-05-17 09:31] VITALS: BP 95/55; PULSE 71; TEMP 98.4
[2018-05-17 11:48] LABS: BASO % 0.2 % (0.0-2.0); EOS # 0.1 (0.0-0.7); EOS % 1.8 % (0-4.0); GRAN # 2.5 (1.4-6.5); GRAN % 50.1 % (42.2-75.2); HEMOGLOBIN 11.2 g/dl (13.5-18.0); LYMPH # 1.8 (1.2-3.4); LYMPH % 36.4 % (20.0-51.0); MEAN CELL VOLUME 90 fl (80.0-100.0); MEAN CORPUSCULAR HEMOGLOBIN 30 pg (27.0-31.0); MEAN CORPUSCULAR HGB CONC 33 g/dl (33.0-37.0); MEAN PLATELET VOLUME 12.1 fl (7.4-10.4); MONO # 0.6 (0.1-0.6); MONO % 11.3 % (1.7-9.3); PLATELET COUNT 215 K/mm3 (130-400); RED BLOOD COUNT 3.73 M/mm3 (4.20-5.60); REDCELL DISTRIBUTION WIDTH-CV 13.4 % (11.5-14.5)
[2018-05-17 11:49] LABS: HEMATOCRIT 33.7 % (42.0-52.0)
[2018-05-17 11:58] LABS: ALANINE AMINOTRANSFERASE 27 U/L (21-72); ALBUMIN 3.7 gm/dL (3.5-5.0); ALKALINE PHOSPHATASE 62 U/L (50-136); ANION GAP 7 mmol/L (7-16); AST,SGOT 13 U/L (15-37); BILIRUBIN,TOTAL 0.9 mg/dL (0.0-1.0); CARBON DIOXIDE 32 mmol/L (22-30); CHLORIDE 100 mmol/L (98-107); CREATININE, serum 0.61 mg/dL (0.66-1.25); GLUCOSE 115 mg/dL (74-106); MAGNESIUM 1.9 mg/dL (1.6-2.3); POTASSIUM 3.3 mmol/L (3.4-5.0); SODIUM 139 mmol/L (137-145); TOTAL PROTEIN 6.9 gm/dL (6.4-8.2)
[2018-05-17 11:59] LABS: BLOOD UREA NITROGEN < 2 mg/dL (9-20)
[2018-05-17 12:25] VITALS: BP 98/58; PULSE 71; TEMP 98.4
[2018-05-17 16:52] VITALS: BP 98/60; PULSE 72; TEMP 98.5
[2018-05-17 20:10] VITALS: BP 118/71; PULSE 70; TEMP 98.2
[2018-05-18 00:32] VITALS: BP 105/65; PULSE 82; TEMP 98.5
[2018-05-18 04:06] VITALS: BP 105/66; PULSE 75; TEMP 98.5
[2018-05-18 07:05] VITALS: BP 113/69; PULSE 69; TEMP 98.7
[2018-05-18 07:22] LABS: BASO % 0.2 % (0.0-2.0); EOS # 0.1 (0.0-0.7); EOS % 2.7 % (0-4.0); GRAN % 43.9 % (42.2-75.2); LYMPH # 1.9 (1.2-3.4); LYMPH % 43.2 % (20.0-51.0); MEAN CELL VOLUME 90 fl (80.0-100.0); MEAN CORPUSCULAR HGB CONC 33 g/dl (33.0-37.0); MEAN PLATELET VOLUME 11.8 fl (7.4-10.4); MONO # 0.4 (0.1-0.6); MONO % 9.8 % (1.7-9.3); PLATELET COUNT 225 K/mm3 (130-400); RED BLOOD COUNT 3.36 M/mm3 (4.20-5.60); REDCELL DISTRIBUTION WIDTH-CV 13.5 % (11.5-14.5)
[2018-05-18 07:31] LABS: ALANINE AMINOTRANSFERASE 26 U/L (21-72); ALBUMIN 3.4 gm/dL (3.5-5.0); ALKALINE PHOSPHATASE 52 U/L (50-136); ANION GAP 7 mmol/L (7-16); AST,SGOT 13 U/L (15-37); BILIRUBIN,TOTAL 0.5 mg/dL (0.0-1.0); CALCIUM 8.7 mg/dL (8.4-10.2); CARBON DIOXIDE 31 mmol/L (22-30); CHLORIDE 101 mmol/L (98-107); CREATININE, serum 0.56 mg/dL (0.66-1.25); GLUCOSE 125 mg/dL (74-106); MAGNESIUM 1.8 mg/dL (1.6-2.3); POTASSIUM 3.5 mmol/L (3.4-5.0); SODIUM 139 mmol/L (137-145); TOTAL PROTEIN 6.3 gm/dL (6.4-8.2)
[2018-05-18 07:32] LABS: BLOOD UREA NITROGEN < 2 mg/dL (9-20); HEMATOCRIT 30.1 % (42.0-52.0); HEMOGLOBIN 9.9 g/dl (13.5-18.0); MEAN CORPUSCULAR HEMOGLOBIN 29 pg (27.0-31.0)
[2018-05-18 20:00] VITALS: BP 114/67; PULSE 85; TEMP 98.5
[2018-05-19 04:00] VITALS: BP 130/84; PULSE 77; TEMP 98.4
[2018-05-19 06:27] LABS: ALBUMIN 3.8 gm/dL (3.5-5.0); BILIRUBIN,TOTAL 0.4 mg/dL (0.0-1.0); CALCIUM 9.1 mg/dL (8.4-10.2); CREATININE, serum 0.58 mg/dL (0.66-1.25); MAGNESIUM 2.1 mg/dL (1.6-2.3); PHOSPHOROUS 4.4 mg/dL (2.5-4.5); POTASSIUM 3.8 mmol/L (3.4-5.0)
[2018-05-19 06:34] LABS: PRE ALBUMIN 11.3 mg/dL (17.6-36.0)
[2018-05-19 08:00] VITALS: BP 113/72; PULSE 71; TEMP 97.6
[2018-05-19 12:00] VITALS: BP 113/67; PULSE 79; TEMP 98.5
[2018-05-19 16:00] VITALS: BP 116/74; PULSE 70; TEMP 98.4
[2018-05-19 19:58] VITALS: BP 124/72; PULSE 80; TEMP 98
[2018-05-19 23:38] VITALS: BP 112/62; PULSE 75; TEMP 98
[2018-05-20 03:55] VITALS: BP 123/79; PULSE 70; TEMP 98.8
[2018-05-20 06:23] LABS: BASO % 0.4 % (0.0-2.0); EOS # 0.1 (0.0-0.7); EOS % 2.7 % (0-4.0); GRAN # 2.2 (1.4-6.5); GRAN % 42.8 % (42.2-75.2); HEMOGLOBIN 11.4 g/dl (13.5-18.0); LYMPH # 2.4 (1.2-3.4); LYMPH % 45.6 % (20.0-51.0); MEAN CELL VOLUME 90 fl (80.0-100.0); MEAN CORPUSCULAR HEMOGLOBIN 29 pg (27.0-31.0); MEAN CORPUSCULAR HGB CONC 33 g/dl (33.0-37.0); MEAN PLATELET VOLUME 11.7 fl (7.4-10.4); MONO # 0.4 (0.1-0.6); MONO % 8.3 % (1.7-9.3); PLATELET COUNT 278 K/mm3 (130-400); RED BLOOD COUNT 3.89 M/mm3 (4.20-5.60); REDCELL DISTRIBUTION WIDTH-CV 13.4 % (11.5-14.5)
[2018-05-20 06:46] LABS: BILIRUBIN,TOTAL 0.5 mg/dL (0.0-1.0); CALCIUM 9.4 mg/dL (8.4-10.2); CREATININE, serum 0.62 mg/dL (0.66-1.25); POTASSIUM 4.2 mmol/L (3.4-5.0); TOTAL PROTEIN 7.2 gm/dL (6.4-8.2)
[2018-05-20 07:52] VITALS: BP 107/69; PULSE 86
[2018-05-20] MEDS ORDERED: FLAGYL500 MG PO (08:13)
[2018-05-20] MEDS ORDERED: CIPRO 500MG TA500 MG PO (08:13)
[2018-05-20] MEDS ORDERED: NORCO 325 MG-51 TAB PO (08:14)
[2018-05-20 11:59] VITALS: BP 120/72; PULSE 79; TEMP 97.6
== END 2018-05-20 14:18 | disposition home or self-care (01) | DRG 439 ==
LOC: COL.ER 16:47 → SURG 18:07
PROVIDERS: Emergency Medicine; Family Medicine; Internal Medicine; Nurse Practitioner Family; Physician Assistant
PROC: 0DH67UZ Insertion of Feeding Device into Stomach, Via Natural or Artificial Opening (ICD-10-PCS; principal; 2018-05-16)
DX: K85.00 Idiopathic acute pancreatitis without necrosis or infection (principal); E46 Unspecified protein-calorie malnutrition; K86.1 Other chronic pancreatitis; K52.9 Noninfective gastroenteritis and colitis, unspecified; F43.12 Post-traumatic stress disorder, chronic; E87.6 Hypokalemia; K21.9 Gastro-esophageal reflux disease without esophagitis; K76.0 Fatty (change of) liver, not elsewhere classified; E16.2 Hypoglycemia, unspecified
CPT/HCPCS: OP; 99231-AI; 99232-AI; 99239; C9113; J1170; J1644; J1885; J2405; J2550; J3475; J3480; J7030; J7121; Q9967

== ENCOUNTER 2018-05-27 15:36 | Inpatient (IN) | payer BC ==
[~2018-05-27] VITALS: Ht 182.9 cm; Wt 75.2 kg
[2018-05-27 17:00] LABS: BASO % 0.5 % (0.0-2.0); EOS # 0.2 (0.0-0.7); GRAN % 49.8 % (42.2-75.2); HEMATOCRIT 37.6 % (42.0-52.0); HEMOGLOBIN 12.4 g/dl (13.5-18.0); LYMPH # 3.1 (1.2-3.4); LYMPH % 38.5 % (20.0-51.0); MEAN CELL VOLUME 89 fl (80.0-100.0); MEAN CORPUSCULAR HEMOGLOBIN 30 pg (27.0-31.0); MEAN CORPUSCULAR HGB CONC 33 g/dl (33.0-37.0); MEAN PLATELET VOLUME 10.7 fl (7.4-10.4); MONO # 0.7 (0.1-0.6); MONO % 8.9 % (1.7-9.3); PLATELET COUNT 326 K/mm3 (130-400); RED BLOOD COUNT 4.21 M/mm3 (4.20-5.60); REDCELL DISTRIBUTION WIDTH-CV 13.5 % (11.5-14.5)
[2018-05-27 17:11] LABS: ALBUMIN 4.7 gm/dL (3.5-5.0); BILIRUBIN,TOTAL 0.9 mg/dL (0.0-1.0); C-REACTIVE PROTEIN 0.6 mg/dL (0.0-0.9); CALCIUM 9.6 mg/dL (8.4-10.2); CREATININE, serum 0.73 mg/dL (0.66-1.25); POTASSIUM 4.2 mmol/L (3.4-5.0); TOTAL PROTEIN 8.1 gm/dL (6.4-8.2)
[2018-05-27 20:36] VITALS: BP 130/84; PULSE 66; TEMP 98.5
[2018-05-27 23:01] VITALS: BP 128/91; PULSE 104; TEMP 97.5
[2018-05-28 03:56] VITALS: BP 113/65; PULSE 50; TEMP 97.4
[2018-05-28 06:41] LABS: BASO % 0.4 % (0.0-2.0); EOS # 0.2 (0.0-0.7); EOS % 2.4 % (0-4.0); GRAN # 2.9 (1.4-6.5); HEMOGLOBIN 10.9 g/dl (13.5-18.0); LYMPH % 52.2 % (20.0-51.0); MEAN CORPUSCULAR HEMOGLOBIN 30 pg (27.0-31.0); MEAN CORPUSCULAR HGB CONC 32 g/dl (33.0-37.0); MEAN PLATELET VOLUME 11.1 fl (7.4-10.4); MONO # 0.5 (0.1-0.6); MONO % 6.7 % (1.7-9.3); PLATELET COUNT 262 K/mm3 (130-400); RED BLOOD COUNT 3.66 M/mm3 (4.20-5.60); REDCELL DISTRIBUTION WIDTH-CV 13.4 % (11.5-14.5)
[2018-05-28 06:53] LABS: CALCIUM 8.7 mg/dL (8.4-10.2); CREATININE, serum 0.74 mg/dL (0.66-1.25); HEMATOCRIT 34.5 % (42.0-52.0); MEAN CELL VOLUME 94 fl (80.0-100.0)
[2018-05-28 07:14] VITALS: BP 108/60; PULSE 55; TEMP 97.6
[2018-05-28 11:35] VITALS: BP 107/61; PULSE 55; TEMP 98.1
[2018-05-28 15:34] VITALS: BP 112/71; PULSE 56; TEMP 98.2
[2018-05-28 21:18] VITALS: BP 106/54; PULSE 55; TEMP 97.9
[2018-05-29 00:39] VITALS: BP 114/67; PULSE 101; TEMP 97.9
[2018-05-29 04:10] VITALS: BP 105/56; PULSE 57; TEMP 97.6
[2018-05-29 06:19] LABS: ALBUMIN 3.6 gm/dL (3.5-5.0); BILIRUBIN,TOTAL 0.8 mg/dL (0.0-1.0); CALCIUM 8.6 mg/dL (8.4-10.2); CREATININE, serum 0.79 mg/dL (0.66-1.25); POTASSIUM 3.9 mmol/L (3.4-5.0); TOTAL PROTEIN 6.3 gm/dL (6.4-8.2)
[2018-05-29 08:40] VITALS: BP 119/56; PULSE 54; TEMP 98.4
[2018-05-29 11:40] VITALS: BP 113/52; PULSE 60; TEMP 98.3
[2018-05-29 16:00] VITALS: BP 120/57; PULSE 67; TEMP 97.9
[2018-05-29 20:03] VITALS: BP 129/67; PULSE 64; TEMP 98.2
[2018-05-30] VITALS (7 sets, daily range): BP systolic 101–128; BP diastolic 48–79; PULSE 51–72; TEMP 97.5–98.6
[2018-05-31 03:59] VITALS: BP 115/45; PULSE 64; TEMP 98.2
[2018-05-31 07:53] VITALS: BP 122/77; PULSE 63; TEMP 98.2
[2018-05-31 11:49] VITALS: BP 120/64; PULSE 70; TEMP 98.6
[2018-05-31 16:04] VITALS: BP 113/64; PULSE 83; TEMP 98.9
[2018-05-31 19:27] VITALS: BP 111/64; PULSE 82; TEMP 98.7
[2018-05-31 23:19] VITALS: BP 118/70; PULSE 98; TEMP 98.5
[2018-06-01 03:36] VITALS: BP 110/61; PULSE 100; TEMP 98.5
[2018-06-01 06:58] LABS: BASO % 0.2 % (0.0-2.0); EOS # 0.1 (0.0-0.7); EOS % 0.3 % (0-4.0); GRAN # 16.1 (1.4-6.5); GRAN % 86.8 % (42.2-75.2); HEMOGLOBIN 12.2 g/dl (13.5-18.0); LYMPH # 1.1 (1.2-3.4); LYMPH % 5.7 % (20.0-51.0); MEAN CELL VOLUME 89 fl (80.0-100.0); MEAN CORPUSCULAR HEMOGLOBIN 30 pg (27.0-31.0); MEAN CORPUSCULAR HGB CONC 33 g/dl (33.0-37.0); MEAN PLATELET VOLUME 10.6 fl (7.4-10.4); MONO # 1.2 (0.1-0.6); MONO % 6.6 % (1.7-9.3); PLATELET COUNT 268 K/mm3 (130-400)
[2018-06-01 06:59] LABS: HEMATOCRIT 36.6 % (42.0-52.0)
[2018-06-01 07:23] LABS: CALCIUM 9.4 mg/dL (8.4-10.2); CREATININE, serum 0.76 mg/dL (0.66-1.25); POTASSIUM 3.9 mmol/L (3.4-5.0)
[2018-06-01 08:01] VITALS: BP 122/60; PULSE 106; TEMP 98.5
[2018-06-01 11:25] VITALS: BP 111/65; PULSE 118; TEMP 99.9
[2018-06-01 15:15] VITALS: BP 102/52; PULSE 95; TEMP 98.2
[2018-06-01 20:40] VITALS: BP 113/64; PULSE 98; TEMP 99
[2018-06-02 02:01] VITALS: BP 103/64; PULSE 91; TEMP 99.2
[2018-06-02 06:00] LABS: BASO % 0.2 % (0.0-2.0); EOS # 0.2 (0.0-0.7); EOS % 1.1 % (0-4.0); GRAN % 71.5 % (42.2-75.2); HEMOGLOBIN 11.3 g/dl (13.5-18.0); LYMPH # 2.4 (1.2-3.4); LYMPH % 17.4 % (20.0-51.0); MEAN CELL VOLUME 89 fl (80.0-100.0); MEAN CORPUSCULAR HEMOGLOBIN 30 pg (27.0-31.0); MEAN CORPUSCULAR HGB CONC 34 g/dl (33.0-37.0); MEAN PLATELET VOLUME 11.2 fl (7.4-10.4); MONO # 1.3 (0.1-0.6); MONO % 9.4 % (1.7-9.3); PLATELET COUNT 221 K/mm3 (130-400); REDCELL DISTRIBUTION WIDTH-CV 13.2 % (11.5-14.5)
[2018-06-02 06:02] LABS: HEMATOCRIT 33.7 % (42.0-52.0)
[2018-06-02 06:30] LABS: ALBUMIN 3.8 gm/dL (3.5-5.0); BILIRUBIN,TOTAL 0.8 mg/dL (0.0-1.0); CALCIUM 8.8 mg/dL (8.4-10.2); CREATININE, serum 0.73 mg/dL (0.66-1.25); POTASSIUM 3.2 mmol/L (3.4-5.0); TOTAL PROTEIN 6.7 gm/dL (6.4-8.2)
[2018-06-02 08:28] VITALS: BP 103/56; PULSE 86; TEMP 98.4
[2018-06-02 12:11] VITALS: BP 104/58; PULSE 87; TEMP 97.6
[2018-06-02 16:47] VITALS: BP 113/67; PULSE 78; TEMP 97.6
[2018-06-02 19:47] VITALS: BP 104/61; PULSE 84; TEMP 98.6
[2018-06-03 00:55] VITALS: BP 139/82; PULSE 104; TEMP 98.5
[2018-06-03 04:38] VITALS: BP 124/72; PULSE 99; TEMP 98.6
[2018-06-03 06:32] LABS: BASO % 0.2 % (0.0-2.0); EOS # 0.1 (0.0-0.7); EOS % 0.4 % (0-4.0); GRAN # 9.5 (1.4-6.5); GRAN % 81.5 % (42.2-75.2); HEMOGLOBIN 11.3 g/dl (13.5-18.0); LYMPH # 1.2 (1.2-3.4); LYMPH % 10.5 % (20.0-51.0); MEAN CELL VOLUME 90 fl (80.0-100.0); MEAN CORPUSCULAR HEMOGLOBIN 30 pg (27.0-31.0); MEAN CORPUSCULAR HGB CONC 33 g/dl (33.0-37.0); MEAN PLATELET VOLUME 11.8 fl (7.4-10.4); MONO # 0.8 (0.1-0.6); MONO % 7.1 % (1.7-9.3); PLATELET COUNT 220 K/mm3 (130-400); RED BLOOD COUNT 3.83 M/mm3 (4.20-5.60); REDCELL DISTRIBUTION WIDTH-CV 13.3 % (11.5-14.5)
[2018-06-03 06:39] LABS: CALCIUM 8.6 mg/dL (8.4-10.2); CREATININE, serum 0.65 mg/dL (0.66-1.25); MAGNESIUM 1.7 mg/dL (1.6-2.3)
[2018-06-03 07:20] LABS: HEMATOCRIT 34.4 % (42.0-52.0)
[2018-06-03 07:55] VITALS: BP 103/61; PULSE 97; TEMP 98.6
[2018-06-03 10:55] VITALS: BP 113/63; PULSE 97; TEMP 98.1
[2018-06-03 15:34] VITALS: BP 104/60; PULSE 90; TEMP 97.9
[2018-06-03 19:42] VITALS: BP 110/62; PULSE 87; TEMP 97.6
[2018-06-04 01:33] VITALS: BP 101/56; PULSE 89; TEMP 99.5
[2018-06-04 05:12] VITALS: PULSE 88
[2018-06-04 06:18] LABS: BASO % 0.3 % (0.0-2.0); EOS # 0.1 (0.0-0.7); EOS % 2.1 % (0-4.0); GRAN # 3.3 (1.4-6.5); GRAN % 53.9 % (42.2-75.2); LYMPH % 33.5 % (20.0-51.0); MEAN CELL VOLUME 91 fl (80.0-100.0); MEAN CORPUSCULAR HGB CONC 32 g/dl (33.0-37.0); MEAN PLATELET VOLUME 11.8 fl (7.4-10.4); MONO # 0.6 (0.1-0.6); PLATELET COUNT 183 K/mm3 (130-400); RED BLOOD COUNT 3.29 M/mm3 (4.20-5.60); REDCELL DISTRIBUTION WIDTH-CV 13.5 % (11.5-14.5)
[2018-06-04 06:27] LABS: CALCIUM 8.2 mg/dL (8.4-10.2); CREATININE, serum 0.71 mg/dL (0.66-1.25); POTASSIUM 3.5 mmol/L (3.4-5.0)
[2018-06-04 06:43] LABS: HEMOGLOBIN 9.7 g/dl (13.5-18.0); MEAN CORPUSCULAR HEMOGLOBIN 29 pg (27.0-31.0)
[2018-06-04 07:34] VITALS: BP 93/47; PULSE 71; TEMP 98.1
[2018-06-04 09:46] VITALS: BP 93/47; PULSE 71; TEMP 98.1
== END 2018-06-04 10:30 | disposition short-term general hospital (02) | DRG 439 ==
LOC: COL.ER 15:36 → MEDICAL 19:13
PROVIDERS: Emergency Medicine; Internal Medicine; Nurse Practitioner; Physician Assistant
DX: K85.00 Idiopathic acute pancreatitis without necrosis or infection (principal); E46 Unspecified protein-calorie malnutrition; K86.1 Other chronic pancreatitis; Z23 Encounter for immunization; K21.9 Gastro-esophageal reflux disease without esophagitis; F43.10 Post-traumatic stress disorder, unspecified; E16.2 Hypoglycemia, unspecified; E87.6 Hypokalemia; D72.829 Elevated white blood cell count, unspecified; K52.9 Noninfective gastroenteritis and colitis, unspecified; Z68.22 Body mass index [BMI] 22.0-22.9, adult
CPT/HCPCS: OP; 99222-AI; 99223-AI; 99231-AI; 99232-AI; 99233-AI; 99239; C9113; G0378; J1170; J1650; J2405; J2550; J3475; J3480; J7030; J7042; J7070; Q9967

== ENCOUNTER 2018-06-21 17:46 | Inpatient (IN) | payer BC ==
[~2018-06-21] VITALS: Ht 182.9 cm; Wt 70.4 kg
[2018-06-21 18:19] LABS: BASO % 0.6 % (0.0-2.0); EOS # 0.1 (0.0-0.7); EOS % 1.4 % (0-4.0); GRAN # 3.5 (1.4-6.5); HEMATOCRIT 37.3 % (42.0-52.0); HEMOGLOBIN 12.3 g/dl (13.5-18.0); LYMPH % 41.9 % (20.0-51.0); MEAN CELL VOLUME 89 fl (80.0-100.0); MEAN CORPUSCULAR HEMOGLOBIN 29 pg (27.0-31.0); MEAN CORPUSCULAR HGB CONC 33 g/dl (33.0-37.0); MEAN PLATELET VOLUME 10.2 fl (7.4-10.4); MONO # 0.5 (0.1-0.6); MONO % 6.8 % (1.7-9.3); PLATELET COUNT 306 K/mm3 (130-400)
[2018-06-21 18:28] LABS: ALBUMIN 4.5 gm/dL (3.5-5.0); BILIRUBIN,TOTAL 1.4 mg/dL (0.0-1.0); CALCIUM 9.2 mg/dL (8.4-10.2); CREATININE, serum 0.81 mg/dL (0.66-1.25); TOTAL PROTEIN 7.5 gm/dL (6.4-8.2)
[2018-06-21 21:20] LABS: MAGNESIUM 2.3 mg/dL (1.6-2.3); PHOSPHOROUS 4.1 mg/dL (2.5-4.5)
[2018-06-21 21:24] LABS: INR 1.1 (0.8-3.0); PROTHROMBIN TIME 12.8 SECONDS (9.7-12.8)
[2018-06-21 21:36] VITALS: BP 117/66; PULSE 65; TEMP 98.1
[2018-06-22 00:07] VITALS: BP 116/66; PULSE 73
[2018-06-22 05:14] VITALS: BP 107/57; PULSE 57
[2018-06-22 07:29] LABS: BASO % 0.3 % (0.0-2.0); EOS # 0.1 (0.0-0.7); EOS % 1.6 % (0-4.0); GRAN # 4.5 (1.4-6.5); GRAN % 59.4 % (42.2-75.2); LYMPH # 2.4 (1.2-3.4); LYMPH % 31.9 % (20.0-51.0); MEAN CELL VOLUME 91 fl (80.0-100.0); MEAN CORPUSCULAR HGB CONC 33 g/dl (33.0-37.0); MEAN PLATELET VOLUME 10.6 fl (7.4-10.4); MONO # 0.5 (0.1-0.6); MONO % 6.5 % (1.7-9.3); PLATELET COUNT 232 K/mm3 (130-400); RED BLOOD COUNT 3.46 M/mm3 (4.20-5.60)
[2018-06-22 07:32] LABS: HEMATOCRIT 31.5 % (42.0-52.0); HEMOGLOBIN 10.3 g/dl (13.5-18.0); MEAN CORPUSCULAR HEMOGLOBIN 30 pg (27.0-31.0)
[2018-06-22 07:45] LABS: ALBUMIN 3.6 gm/dL (3.5-5.0); BILIRUBIN,TOTAL 0.9 mg/dL (0.0-1.0); CALCIUM 8.6 mg/dL (8.4-10.2); CREATININE, serum 0.78 mg/dL (0.66-1.25); POTASSIUM 4.2 mmol/L (3.4-5.0); TOTAL PROTEIN 6.2 gm/dL (6.4-8.2)
[2018-06-22 08:06] VITALS: BP 94/50; PULSE 60; TEMP 97.8
[2018-06-22 13:42] VITALS: BP 115/57; PULSE 56; TEMP 98.4
[2018-06-22 19:09] VITALS: BP 114/62; PULSE 62; TEMP 98.4
[2018-06-22 23:08] LABS: COLLECTION METHOD CLEAN CATCH
[2018-06-22 23:13] VITALS: BP 112/66; PULSE 60; TEMP 98
[2018-06-22 23:45] LABS: MUCOUS Present /lpf; PH 5 (5-8); SQUAMOUS EPITHELIAL 0-2 /hpf; URINE APPEARANCE Hazy; URINE BACTERIA None Seen /hpf; URINE BILIRUBIN Negative (NEGATIVE); URINE BLOOD Negative (NEGATIVE); URINE COLOR Yellow; URINE GLUCOSE Negative (NEGATIVE); URINE KETONE Trace (NEGATIVE); URINE LEUKOCYTE ESTERASE Negative (NEGATIVE); URINE NITRATE Negative (NEGATIVE); URINE PROTEIN(semi-quant) Negative (NEGATIVE); URINE RBC 0-2 /hpf; URINE UROBILINOGEN Negative (NEGATIVE)
[2018-06-23 04:56] VITALS: BP 110/55; PULSE 50; TEMP 97.6
[2018-06-23 06:41] LABS: BASO % 0.4 % (0.0-2.0); EOS # 0.1 (0.0-0.7); EOS % 2.8 % (0-4.0); GRAN # 1.6 (1.4-6.5); GRAN % 33.5 % (42.2-75.2); LYMPH # 2.6 (1.2-3.4); LYMPH % 55.7 % (20.0-51.0); MEAN CELL VOLUME 90 fl (80.0-100.0); MEAN CORPUSCULAR HGB CONC 33 g/dl (33.0-37.0); MEAN PLATELET VOLUME 10.2 fl (7.4-10.4); MONO # 0.4 (0.1-0.6); MONO % 7.4 % (1.7-9.3); PLATELET COUNT 213 K/mm3 (130-400); RED BLOOD COUNT 3.28 M/mm3 (4.20-5.60); REDCELL DISTRIBUTION WIDTH-CV 13.7 % (11.5-14.5)
[2018-06-23 06:43] LABS: HEMATOCRIT 29.5 % (42.0-52.0); HEMOGLOBIN 9.6 g/dl (13.5-18.0); MEAN CORPUSCULAR HEMOGLOBIN 29 pg (27.0-31.0)
[2018-06-23 06:52] LABS: CALCIUM 8.7 mg/dL (8.4-10.2); CREATININE, serum 0.7 mg/dL (0.66-1.25); POTASSIUM 4.1 mmol/L (3.4-5.0)
[2018-06-23 07:35] VITALS: BP 117/59; PULSE 51; TEMP 97.9
[2018-06-23 11:04] VITALS: BP 118/72; PULSE 70; TEMP 97.9
== END 2018-06-23 16:50 | disposition home or self-care (01) | DRG 440 ==
LOC: COL.ER 17:46 → MEDICAL 20:09 → COL.ER 20:09 → MEDICAL 06-22 18:06
PROVIDERS: Emergency Medicine; Hospitalist; Nurse Practitioner Family
DX: K85.00 Idiopathic acute pancreatitis without necrosis or infection (principal); K86.1 Other chronic pancreatitis; F43.10 Post-traumatic stress disorder, unspecified; K21.9 Gastro-esophageal reflux disease without esophagitis
CPT/HCPCS: 99222-AI; 99239; C9113; J1170; J2405; J2550; J7030

== ENCOUNTER 2018-06-27 17:21 | Inpatient (IN) | payer BC ==
[~2018-06-27] VITALS: Ht 182.9 cm; Wt 72.7 kg
[2018-06-27 17:50] LABS: BASO % 0.3 % (0.0-2.0); EOS # 0.2 (0.0-0.7); EOS % 1.6 % (0-4.0); GRAN % 60.4 % (42.2-75.2); HEMATOCRIT 37.1 % (42.0-52.0); HEMOGLOBIN 12.3 g/dl (13.5-18.0); LYMPH # 3.1 (1.2-3.4); LYMPH % 31.1 % (20.0-51.0); MEAN CELL VOLUME 89 fl (80.0-100.0); MEAN CORPUSCULAR HEMOGLOBIN 29 pg (27.0-31.0); MEAN CORPUSCULAR HGB CONC 33 g/dl (33.0-37.0); MEAN PLATELET VOLUME 10.7 fl (7.4-10.4); MONO # 0.6 (0.1-0.6); MONO % 6.4 % (1.7-9.3); PLATELET COUNT 267 K/mm3 (130-400); RED BLOOD COUNT 4.19 M/mm3 (4.20-5.60); REDCELL DISTRIBUTION WIDTH-CV 14.3 % (11.5-14.5)
[2018-06-27 18:03] LABS: ALANINE AMINOTRANSFERASE 32 U/L (21-72); ALBUMIN 4.6 gm/dL (3.5-5.0); ALKALINE PHOSPHATASE 60 U/L (50-136); ANION GAP 10 mmol/L (7-16); AST,SGOT 16 U/L (15-37); BLOOD UREA NITROGEN 12 mg/dL (9-20); C-REACTIVE PROTEIN < 0.5 mg/dL (0.0-0.9); CALCIUM 9.3 mg/dL (8.4-10.2); CARBON DIOXIDE 24 mmol/L (22-30); CHLORIDE 109 mmol/L (98-107); CREATININE, serum 0.73 mg/dL (0.66-1.25); GLUCOSE 115 mg/dL (74-106); POTASSIUM 4.2 mmol/L (3.4-5.0); SODIUM 142 mmol/L (137-145); TOTAL PROTEIN 7.7 gm/dL (6.4-8.2)
[2018-06-27 18:19] LABS: LIPASE 8556 U/L (23-300)
[2018-06-27 22:38] VITALS: BP 134/94; PULSE 61; TEMP 97.5
[2018-06-28 02:53] LABS: COLLECTION METHOD CLEAN CATCH
[2018-06-28 03:09] LABS: MUCOUS Present /lpf; PH 6 (5-8); SQUAMOUS EPITHELIAL None Seen /hpf; URINE APPEARANCE Clear; URINE BACTERIA None Seen /hpf; URINE BILIRUBIN Negative (NEGATIVE); URINE BLOOD Negative (NEGATIVE); URINE COLOR Yellow; URINE GLUCOSE Negative (NEGATIVE); URINE KETONE Negative (NEGATIVE); URINE LEUKOCYTE ESTERASE Negative (NEGATIVE); URINE NITRATE Negative (NEGATIVE); URINE PROTEIN(semi-quant) Negative (NEGATIVE); URINE RBC None Seen /hpf; URINE UROBILINOGEN Negative (NEGATIVE)
[2018-06-28 03:13] VITALS: BP 117/68; PULSE 55
[2018-06-28 07:08] LABS: BASO % 0.3 % (0.0-2.0); EOS # 0.2 (0.0-0.7); EOS % 2.6 % (0-4.0); GRAN # 3.5 (1.4-6.5); GRAN % 50.3 % (42.2-75.2); LYMPH # 2.6 (1.2-3.4); MEAN CELL VOLUME 90 fl (80.0-100.0); MEAN CORPUSCULAR HGB CONC 33 g/dl (33.0-37.0); MEAN PLATELET VOLUME 10.7 fl (7.4-10.4); MONO # 0.6 (0.1-0.6); MONO % 8.7 % (1.7-9.3); PLATELET COUNT 170 K/mm3 (130-400); RED BLOOD COUNT 3.41 M/mm3 (4.20-5.60); REDCELL DISTRIBUTION WIDTH-CV 14.4 % (11.5-14.5)
[2018-06-28 07:11] LABS: HEMATOCRIT 30.7 % (42.0-52.0); HEMOGLOBIN 10.2 g/dl (13.5-18.0); MEAN CORPUSCULAR HEMOGLOBIN 30 pg (27.0-31.0)
[2018-06-28 07:23] LABS: CALCIUM 8.6 mg/dL (8.4-10.2); CREATININE, serum 0.63 mg/dL (0.66-1.25); POTASSIUM 4.3 mmol/L (3.4-5.0)
[2018-06-28 07:37] VITALS: BP 130/90; PULSE 68; TEMP 98.9
[2018-06-28 11:41] VITALS: BP 125/80; PULSE 57; TEMP 97.5
[2018-06-28 15:45] VITALS: BP 125/71; PULSE 61; TEMP 98.4
[2018-06-28 18:45] VITALS: BP 129/87; PULSE 60; TEMP 98.7
[2018-06-28 23:17] VITALS: BP 125/78; PULSE 53; TEMP 98.4
[2018-06-29 03:27] VITALS: BP 119/74; PULSE 56
[2018-06-29 06:39] LABS: ALBUMIN 3.8 gm/dL (3.5-5.0); CALCIUM 8.8 mg/dL (8.4-10.2); CREATININE, serum 0.6 mg/dL (0.66-1.25); TOTAL PROTEIN 6.4 gm/dL (6.4-8.2)
[2018-06-29 07:42] VITALS: BP 101/57; PULSE 56; TEMP 98.3
[2018-06-29 11:28] VITALS: BP 133/86; PULSE 61; TEMP 98.1
[2018-06-29 15:17] VITALS: BP 149/84; PULSE 84; TEMP 98.4
[2018-06-29 21:46] VITALS: BP 106/61; PULSE 62; TEMP 97.9
[2018-06-30 00:40] VITALS: BP 116/59; PULSE 60; TEMP 97.8
[2018-06-30 05:05] VITALS: BP 127/77; PULSE 69; TEMP 97.8
[2018-06-30 06:26] LABS: BASO % 0.4 % (0.0-2.0); EOS # 0.2 (0.0-0.7); EOS % 3.4 % (0-4.0); GRAN # 2.5 (1.4-6.5); GRAN % 47.3 % (42.2-75.2); HEMOGLOBIN 11.3 g/dl (13.5-18.0); LYMPH # 2.2 (1.2-3.4); LYMPH % 41.7 % (20.0-51.0); MEAN CELL VOLUME 89 fl (80.0-100.0); MEAN CORPUSCULAR HEMOGLOBIN 29 pg (27.0-31.0); MEAN CORPUSCULAR HGB CONC 33 g/dl (33.0-37.0); MEAN PLATELET VOLUME 10.8 fl (7.4-10.4); MONO # 0.4 (0.1-0.6); MONO % 7.2 % (1.7-9.3); PLATELET COUNT 187 K/mm3 (130-400); RED BLOOD COUNT 3.85 M/mm3 (4.20-5.60); REDCELL DISTRIBUTION WIDTH-CV 13.9 % (11.5-14.5)
[2018-06-30 06:31] LABS: HEMATOCRIT 34.3 % (42.0-52.0)
[2018-06-30 06:39] LABS: ALBUMIN 4.1 gm/dL (3.5-5.0); BILIRUBIN,TOTAL 0.9 mg/dL (0.0-1.0); CALCIUM 9.2 mg/dL (8.4-10.2); CREATININE, serum 0.62 mg/dL (0.66-1.25); POTASSIUM 3.7 mmol/L (3.4-5.0)
[2018-06-30 08:01] VITALS: BP 106/64; PULSE 56; TEMP 97.8
[2018-06-30 12:41] VITALS: BP 113/62; PULSE 55; TEMP 97.9
[2018-06-30 16:23] VITALS: BP 128/80; PULSE 69; TEMP 97.8
[2018-06-30 20:08] VITALS: BP 144/93; PULSE 54; TEMP 97.8
[2018-07-01 00:41] VITALS: BP 146/95; PULSE 66; TEMP 98.7
[2018-07-01 04:40] VITALS: BP 124/77; PULSE 66; TEMP 97.4
[2018-07-01 07:22] LABS: BASO % 0.2 % (0.0-2.0); EOS # 0.1 (0.0-0.7); EOS % 2.9 % (0-4.0); GRAN % 44.6 % (42.2-75.2); LYMPH # 2.1 (1.2-3.4); LYMPH % 45.3 % (20.0-51.0); MEAN CELL VOLUME 86 fl (80.0-100.0); MEAN CORPUSCULAR HEMOGLOBIN 30 pg (27.0-31.0); MEAN CORPUSCULAR HGB CONC 34 g/dl (33.0-37.0); MEAN PLATELET VOLUME 10.8 fl (7.4-10.4); MONO # 0.3 (0.1-0.6); MONO % 6.8 % (1.7-9.3); PLATELET COUNT 171 K/mm3 (130-400); RED BLOOD COUNT 3.72 M/mm3 (4.20-5.60); REDCELL DISTRIBUTION WIDTH-CV 13.8 % (11.5-14.5)
[2018-07-01 07:24] LABS: HEMATOCRIT 32.1 % (42.0-52.0)
[2018-07-01 07:32] VITALS: BP 133/89; PULSE 55; TEMP 97.5
[2018-07-01 07:34] LABS: CALCIUM 9.2 mg/dL (8.4-10.2); CREATININE, serum 0.59 mg/dL (0.66-1.25); POTASSIUM 3.8 mmol/L (3.4-5.0)
[2018-07-01 11:26] VITALS: BP 137/97; PULSE 75; TEMP 97.9
[2018-07-01 15:01] VITALS: BP 123/75; PULSE 69; TEMP 98.5
[2018-07-01 20:15] VITALS: BP 131/89; PULSE 62; TEMP 97.4
[2018-07-02] VITALS (7 sets, daily range): BP systolic 117–134; BP diastolic 67–94; PULSE 58–85; TEMP 96–98.5
[2018-07-02 06:58] LABS: CALCIUM 9.2 mg/dL (8.4-10.2); CREATININE, serum 0.56 mg/dL (0.66-1.25); MAGNESIUM 1.8 mg/dL (1.6-2.3); PHOSPHOROUS 4.1 mg/dL (2.5-4.5); POTASSIUM 3.8 mmol/L (3.4-5.0)
[2018-07-03 00:54] VITALS: BP 118/79; PULSE 73; TEMP 98.7
[2018-07-03 05:19] VITALS: BP 95/50; PULSE 58; TEMP 97.2
[2018-07-03 06:45] LABS: BASO % 0.5 % (0.0-2.0); EOS # 0.2 (0.0-0.7); EOS % 4.4 % (0-4.0); GRAN # 1.1 (1.4-6.5); GRAN % 27.2 % (42.2-75.2); HEMOGLOBIN 10.6 g/dl (13.5-18.0); LYMPH # 2.3 (1.2-3.4); LYMPH % 58.6 % (20.0-51.0); MEAN CELL VOLUME 89 fl (80.0-100.0); MEAN CORPUSCULAR HEMOGLOBIN 29 pg (27.0-31.0); MEAN CORPUSCULAR HGB CONC 33 g/dl (33.0-37.0); MEAN PLATELET VOLUME 10.8 fl (7.4-10.4); MONO # 0.4 (0.1-0.6); MONO % 9.3 % (1.7-9.3); PLATELET COUNT 165 K/mm3 (130-400); RED BLOOD COUNT 3.62 M/mm3 (4.20-5.60)
[2018-07-03 07:02] LABS: HEMATOCRIT 32.1 % (42.0-52.0)
[2018-07-03 07:09] LABS: ALBUMIN 3.7 gm/dL (3.5-5.0); BILIRUBIN,TOTAL 0.8 mg/dL (0.0-1.0); CALCIUM 9.2 mg/dL (8.4-10.2); CREATININE, serum 0.62 mg/dL (0.66-1.25); POTASSIUM 3.9 mmol/L (3.4-5.0); TOTAL PROTEIN 6.4 gm/dL (6.4-8.2)
[2018-07-03 07:20] VITALS: BP 94/58; PULSE 66; TEMP 97.5
[2018-07-03] MEDS ORDERED: NORCO 325 MG-51 TAB PO (11:19)
== END 2018-07-03 12:45 | disposition home or self-care (01) | DRG 440 ==
LOC: COL.ER 17:21 → MEDICAL 21:31
PROVIDERS: Family Medicine; Internal Medicine; Nurse Practitioner; Physician Assistant
DX: K85.00 Idiopathic acute pancreatitis without necrosis or infection (principal); K86.1 Other chronic pancreatitis; K21.9 Gastro-esophageal reflux disease without esophagitis; F43.12 Post-traumatic stress disorder, chronic; E16.2 Hypoglycemia, unspecified
CPT/HCPCS: 99223-AI; 99231-AI; 99232-AI; 99239; J1170; J1650; J2405; J2550; J7030

== ENCOUNTER 2018-08-15 13:03 | Inpatient (IN) | payer BC ==
[~2018-08-15] VITALS: Ht 182.9 cm; Wt 75.7 kg
[2018-08-15 15:24] LABS: BASO % 0.5 % (0.0-2.0); EOS # 0.1 (0.0-0.7); EOS % 2.1 % (0-4.0); GRAN # 2.8 (1.4-6.5); GRAN % 49.9 % (42.2-75.2); HEMATOCRIT 38.3 % (42.0-52.0); HEMOGLOBIN 12.6 g/dl (13.5-18.0); LYMPH # 2.3 (1.2-3.4); LYMPH % 39.9 % (20.0-51.0); MEAN CELL VOLUME 91 fl (80.0-100.0); MEAN CORPUSCULAR HEMOGLOBIN 30 pg (27.0-31.0); MEAN CORPUSCULAR HGB CONC 33 g/dl (33.0-37.0); MEAN PLATELET VOLUME 10.6 fl (7.4-10.4); MONO # 0.4 (0.1-0.6); MONO % 7.4 % (1.7-9.3); PLATELET COUNT 223 K/mm3 (130-400); RED BLOOD COUNT 4.21 M/mm3 (4.20-5.60); REDCELL DISTRIBUTION WIDTH-CV 14.1 % (11.5-14.5)
[2018-08-15 15:32] LABS: ALBUMIN 4.5 gm/dL (3.5-5.0); BILIRUBIN,TOTAL 0.7 mg/dL (0.0-1.0); CALCIUM 9.4 mg/dL (8.4-10.2); CREATININE, serum 0.76 mg/dL (0.66-1.25); POTASSIUM 4.6 mmol/L (3.4-5.0); TOTAL PROTEIN 7.4 gm/dL (6.4-8.2)
[2018-08-15 17:25] VITALS: BP 112/64; PULSE 53; TEMP 98.7
--- NOTE | 2018-08-15 18:12 | NUR ---
Pt was admitted to room 357 from ED. He is awake and A/Ox4, independent in the room. IV to right AC is free of complications. Pt does report 6/10 abdominal pain, tender to touch. Requested PRN diaudid which was given. Medications/allergies/pharm reviewed. Plan of care was discussed with pt by Dr. Carrizales. Pt remains NPO. Denies any further needs, will monitor.
[2018-08-15 18:40] VITALS: BP 105/56; PULSE 60; TEMP 98.2
--- NOTE | 2018-08-15 20:06 | NUR ---
Pt in bed playing games on phone, shift assessments complete, left Pt call light in reach, bed in lowest position.
[2018-08-16] VITALS (7 sets, daily range): BP systolic 90–116; BP diastolic 47–68; PULSE 48–57; TEMP 97.7–98.8
[2018-08-16 07:50] LABS: BASO % 0.2 % (0.0-2.0); EOS # 0.1 (0.0-0.7); EOS % 1.9 % (0-4.0); GRAN # 2.1 (1.4-6.5); GRAN % 36.4 % (42.2-75.2); LYMPH % 52.7 % (20.0-51.0); MEAN CELL VOLUME 93 fl (80.0-100.0); MEAN CORPUSCULAR HGB CONC 32 g/dl (33.0-37.0); MEAN PLATELET VOLUME 11.2 fl (7.4-10.4); MONO # 0.5 (0.1-0.6); MONO % 8.8 % (1.7-9.3); PLATELET COUNT 173 K/mm3 (130-400); RED BLOOD COUNT 3.47 M/mm3 (4.20-5.60); REDCELL DISTRIBUTION WIDTH-CV 14.2 % (11.5-14.5)
[2018-08-16 07:57] LABS: CALCIUM 8.6 mg/dL (8.4-10.2); CREATININE, serum 0.85 mg/dL (0.66-1.25)
[2018-08-16 08:01] LABS: HEMATOCRIT 32.3 % (42.0-52.0); HEMOGLOBIN 10.4 g/dl (13.5-18.0); MEAN CORPUSCULAR HEMOGLOBIN 30 pg (27.0-31.0)
--- NOTE | 2018-08-16 08:08 | NUR ---
PATIENT ASSESSMENT COMPLETED. HE STATES THAT PAIN IS ALOT BETTER AND HAS NO NAUSEA AT THIS TIME. PROTONIX PROVIDED PER ORDERS. NO OTHER NEEDS AT THIS TIME
--- NOTE | 2018-08-16 09:05 | NUR ---
PATIENT COMPLAINS OF ABDOMEN PAIN PRN DILAUDID GIVEN
--- NOTE | 2018-08-16 12:07 | NUR ---
PRN PAIN MEDICATION PROVIDED PER REQUEST FOR COMPLAINTS OF PAIN
--- NOTE | 2018-08-16 15:28 | NUR ---
PATIENT COMPLAINS OF ABDOMEN PAIN. WITH A RATING OF 5/10. DULL ACHE. PRN DILAUDID PROVIDED.
--- NOTE | 2018-08-16 16:27 | NUR ---
Sw met with PT, PT reports nothing has changed other than the update of having pancreas removed via [facility]. Pt indicated that he is doing fine but didnt really want to talk. PT indicated he still resides in town and has had many hospital stays due to pain. Plans to return home, ltc plan is reported as removal of pancreas. No additional need identified.
--- NOTE | 2018-08-16 16:55 | NUR ---
PATIENT PLAYING IPAD IN BED. SIGNIFICANT OTHER SITTING AT BEDSIDE. HE DENIES NEEDS AT THIS TIME
--- NOTE | 2018-08-16 18:45 | NUR ---
PATIENT GIVEN DILAUDID PRN FOR COMPLAINTS OF PAIN.
--- NOTE | 2018-08-16 18:47 | NUR ---
PATIENT REQUESTED PAIN MEDICATION THIS IS PROVIDED. NO OTHER NEEDS AT THISTIME FRIEND AT BEDSIDE
--- NOTE | 2018-08-16 19:49 | NUR ---
Resting in bed with girlfriend at bedside. Reports 3/10 ABD pain at this time. Assessment complete. Alert and orientated. Lungs clear. Pulses strong. Denies needs at this time. Call light in reach.
--- NOTE | 2018-08-16 22:35 | NUR ---
Request PRN dilaudid for 5/10 ABD pain. Denies other needs at this time. Call light in reach.
--- NOTE | 2018-08-17 00:56 | NUR ---
Resting in bed. Request PRN dilaudid and phenergan. Will provide. Call light in reach.
[2018-08-17 02:53] VITALS: BP 102/62; PULSE 50; TEMP 97.6
--- NOTE | 2018-08-17 06:29 | NUR ---
Had uneventful night. Given PRN dose of dilaudid and phenergan throughout night for pain control and nausea. Rates pain at 1 after last dose. Asleep at this time. Call light in reach.
[2018-08-17 06:56] VITALS: BP 101/48; PULSE 49; TEMP 97.7
--- NOTE | 2018-08-17 08:40 | NUR ---
PATIENT ASSESSMENT COMPLETED. HE IS SLEEPING IN BED AND ARROUSES EASILY TO VERBAL STIMULI. REPORTS PAIN A 2/10 TO ABDOMEN AND DENIES NEED FOR NAUSEA MEDICATION. WILL CONTINUE TO MONITOR FOR NEEDS.
--- NOTE | 2018-08-17 10:00 | NUR ---
PATIENT SLEEPING IN BED NO SIGNS OF DISTRESS
[2018-08-17 10:59] VITALS: BP 113/66; PULSE 48; TEMP 97.8
--- NOTE | 2018-08-17 12:00 | NUR ---
PATIENT SLEEPING EASILY ARROUSES TO VERBAL STIMULI DENIES NEEDS FOR PAIN OR NAUSEA MEDICATIONS
--- NOTE | 2018-08-17 13:31 | NUR ---
PATIENT REQUESTED A REGULAR LOW FAT DIET. NOTIFIED DR. KAYA DUNLAP RECEIVED
--- NOTE | 2018-08-17 15:28 | NUR ---
DISCHARGE PAPERWORK REVIEWED WITH PATIENT. IV TO RIGHT AC DISCONTINUED WITH CATH INTACT.
--- NOTE | 2018-08-17 15:45 | NUR ---
PATIENT DISCHARGED TO HOME WITH BELONGINGS. DENIES FURTHER QUESTIONS.
== END 2018-08-17 15:45 | disposition home or self-care (01) | DRG 440 ==
LOC: COL.ER 13:03 → MEDICAL 15:53
PROVIDERS: Emergency Medicine; Nurse Practitioner Family; ADMIT Family Medicine
DX: K85.00 Idiopathic acute pancreatitis without necrosis or infection (principal); K86.1 Other chronic pancreatitis; K21.9 Gastro-esophageal reflux disease without esophagitis; F43.10 Post-traumatic stress disorder, unspecified; F32.9 Major depressive disorder, single episode, unspecified
CPT/HCPCS: 99222-AI; 99232-AI; 99238; C9113; J1170; J1650; J2405; J2550; J7030; J7042

== ENCOUNTER 2018-08-25 07:58 | Emergency (ER) | payer BC ==
[~2018-08-25] VITALS: Ht 182.9 cm; Wt 71.4 kg
[2018-08-25 08:03] VITALS: TEMP 97.4
[2018-08-25 08:32] LABS: BASO % 0.4 % (0.0-2.0); EOS # 0.2 (0.0-0.7); EOS % 2.4 % (0-4.0); GRAN # 2.4 (1.4-6.5); GRAN % 33.2 % (42.2-75.2); HEMATOCRIT 37.9 % (42.0-52.0); LYMPH # 4.1 (1.2-3.4); LYMPH % 56.5 % (20.0-51.0); MEAN CELL VOLUME 92 fl (80.0-100.0); MEAN CORPUSCULAR HEMOGLOBIN 29 pg (27.0-31.0); MEAN CORPUSCULAR HGB CONC 32 g/dl (33.0-37.0); MEAN PLATELET VOLUME 10.9 fl (7.4-10.4); MONO # 0.5 (0.1-0.6); MONO % 7.4 % (1.7-9.3); PLATELET COUNT 234 K/mm3 (130-400); REDCELL DISTRIBUTION WIDTH-CV 13.7 % (11.5-14.5)
[2018-08-25 08:45] LABS: ALANINE AMINOTRANSFERASE 17 U/L (21-72); ALBUMIN 4.3 gm/dL (3.5-5.0); ALKALINE PHOSPHATASE 57 U/L (50-136); AMYLASE 101 U/L (30-110); ANION GAP 6 mmol/L (7-16); AST,SGOT 20 U/L (15-37); BILIRUBIN,TOTAL 0.6 mg/dL (0.0-1.0); BLOOD UREA NITROGEN 18 mg/dL (9-20); CALCIUM 9.6 mg/dL (8.4-10.2); CARBON DIOXIDE 28 mmol/L (22-30); CHLORIDE 108 mmol/L (98-107); CREATININE, serum 0.93 mg/dL (0.66-1.25); GLUCOSE 92 mg/dL (74-106); LIPASE 397 U/L (23-300); POTASSIUM 4.3 mmol/L (3.4-5.0); SODIUM 141 mmol/L (137-145); TOTAL PROTEIN 7.3 gm/dL (6.4-8.2)
[2018-08-25 08:46] LABS: C-REACTIVE PROTEIN < 0.5 mg/dL (0.0-0.9)
[2018-08-25] MEDS ORDERED: NORCO 325 MG-51 TAB PO (11:23)
[2018-08-25 11:46] VITALS: BP 117/75; PULSE 64
== END 2018-08-25 11:46 | disposition home or self-care (01) ==
LOC: COL.ER 07:58
PROVIDERS: Emergency Medicine
DX: K85.90 Acute pancreatitis without necrosis or infection, unspecified (principal); Z90.49 Acquired absence of other specified parts of digestive tract; Z90.89 Acquired absence of other organs; Z98.890 Other specified postprocedural states
CPT/HCPCS: J1170; J2405; J7030